=== PATIENT | female | born 1960 | race Caucasian/White ===

== ENCOUNTER → 2017-04-28 | Outpatient (CLI) | payer OTHER | LOC: MC.RAD 16:00 | DX: Z12.31 Encounter for screening mammogram for malignant neoplasm of breast (principal) ==

== ENCOUNTER → 2018-06-10 | Outpatient (CLI) | payer OTHER | LOC: MC.RAD 11:40 | DX: Z12.31 Encounter for screening mammogram for malignant neoplasm of breast (principal) ==

== ENCOUNTER → 2019-06-13 | Outpatient (CLI) | payer BC | LOC: MC.RAD 07:15 | DX: Z12.31 Encounter for screening mammogram for malignant neoplasm of breast (principal) ==

== ENCOUNTER 2021-05-31 07:37 | Day surgery (SDC) | payer BC ==
[~2021-05-31] VITALS: Ht 172.7 cm; Wt 345.1 kg
[2021-05-31 08:39] VITALS: BP 110/71; PULSE 60; TEMP 98.3
[2021-05-31 09:45] VITALS: BP 123/40; PULSE 70; TEMP 97.6
--- NOTE | 2021-05-31 09:45 | NUR ---
0945 PATIENT TRANSPORTED PER CART FROM [facility] SUITE TO [facility] ACCOMPANIED BY ENDO RN. PATIENT AMBULATED FROM CART TO CHAIR WITH 2 ASSIST. MONITORS APPLIED. VSS ON ROOM AIR. IN ROOM. PATIENT TALKS WITH STAFF. VERBAL REPORT RECEIVED. [address] MORALES IN ROOM AND SPEAKS WITH PATIENT. PATIENT EATS MUFFIN AND DRINKS ORANGE JUICE. 1015 VSS ON ROOM AIR. PATIENT DENIES DISCOMFORT AND NAUSEA. 1017 IV DC'D WITH CATHER INTACT. PRESSURE AND BANDAGE APPLIED. DISCHARGE INSTRUCTIONS GIVEN VERBAL AND DISCHARGE PACKET PROVIDED. QUESTIONS ANSWERED AND PATIENT AND VOICED UNDERSTANDING. PATIENT CHANGES INTO STREET CLOTHES. 1030 PATIENT DISCHARGED PER WHEEL CHAIR [facility].
[2021-05-31 10:00] VITALS: BP 113/82; PULSE 72
[2021-05-31 10:15] VITALS: BP 120/62; PULSE 57
[2021-05-31 10:25] VITALS: BP 128/71; PULSE 59
== END 2021-05-31 10:30 | disposition home or self-care (01) ==
LOC: SDCO 07:37
DX: Z12.11 Encounter for screening for malignant neoplasm of colon (principal); Z20.822 Contact with and (suspected) exposure to COVID-19
CPT/HCPCS: J2704; J7030

== ENCOUNTER → 2021-06-24 | Outpatient (CLI) | payer BC | LOC: MC.RAD 09:03 | DX: Z12.31 Encounter for screening mammogram for malignant neoplasm of breast (principal) ==

== ENCOUNTER → 2021-07-04 | Outpatient (CLI) | payer BC | LOC: COL.RAD 13:43 | DX: R59.0 Localized enlarged lymph nodes (principal) ==

== ENCOUNTER → 2022-07-23 | Outpatient (CLI) | payer BC | LOC: MC.RAD 15:00 | DX: Z12.31 Encounter for screening mammogram for malignant neoplasm of breast (principal) ==

== ENCOUNTER → 2023-08-12 | Outpatient (CLI) | payer BC | LOC: MC.RAD 09:58 | DX: N64.89 Other specified disorders of breast (principal) ==